=== PATIENT | male | born 1980 | race Hispanic/Latino ===

== ENCOUNTER 2019-06-22 23:20 | Emergency (ER) | payer OTHER ==
[2019-06-23] MEDS ORDERED: TETRACAINE HCL 0.5% 4 ML OPHTH SOLN ONE (00:15)
[2019-06-23] MEDS ORDERED: FLUORESCEIN SODIUM 1 STRIP STRIP ONE (00:16)
[2019-06-23] MEDS ORDERED: ONDANSETRON HCL 4 MG/2 ML VIAL ONE (00:16)
[2019-06-23] MEDS ORDERED: MORPHINE SULFATE 4 MG/1ML SYG ONE ×2 (00:16→01:09)
[2019-06-23] MEDS ORDERED: CEFAZOLIN SODIUM 1 GM VIAL ONE (00:16)
[2019-06-23] MEDS ORDERED: TETANUS/DIPHTHERIA TOXOID [ADULT] 0.5 ML VIAL IM ONE (00:17)
[2019-06-23 00:23] LABS: CREATININE 1.1 mg/dL (0.5-1.5); POTASSIUM 3.5 mmol/L (3.5-5.1)
[2019-06-23 00:28] LABS: BILIRUBIN,TOTAL 0.4 mg/dL (0.2-1.0)
[2019-06-23 00:34] LABS: EOSINOPHILS % (AUTO) 0.9 % (0.0-8.0); HEMATOCRIT 39.9 % (42-54); LYMPHOCYTES % (AUTO) 17.9 % (21.0-51.0); MEAN CORPUSCULAR HEMOGLOBIN 31.8 pg (27.0-33.0); MEAN CORPUSCULAR HGB CONC 35.3 g/dL (32.0-36.0); MEAN CORPUSCULAR VOLUME 89.9 fL (79-99); MONOCYTES % (AUTO) 7.9 % (3.0-13.0); PLATELET COUNT (AUTO) 265 K/uL (130-400); RED BLOOD CELL COUNT(AUTO) 4.44 MIL/uL (4.50-6.20); RED CELL DISTRIBUTION WIDTH 11.8 % (11.0-15.5); WHITE BLOOD COUNT (AUTO) 9.8 K/uL (4.8-10.8)
[2019-06-23] MEDS ORDERED: LIDOCAINE HCL 1% 20 ML VIAL ONE (01:35)
[2019-06-23] MEDS ORDERED: OCTYL 2-CYANOACRYLATE 1 EACH TP ONE (02:27)
== END 2019-06-23 03:03 | disposition home or self-care (01) ==
LOC: EDH 23:20
DX: S01.81XA Laceration without foreign body of other part of head, initial encounter (principal); Z72.0 Tobacco use; Y08.89XA Assault by other specified means, initial encounter; Y93.89 Activity, other specified; Y92.89 Other specified places as the place of occurrence of the external cause; Y99.8 Other external cause status
CPT/HCPCS: 12014; 12051; 36415; 70450; 70486; 80053; 85025; 90471; 90714; 96365; 96375; 99285; J0690; J2270 ×2; J2405